=== PATIENT | male | born 1955 | race Caucasian/White ===

== ENCOUNTER → 2016-11-18 | Outpatient (CLI) | payer OTHER ==
[2016-11-18 11:23] LABS: ALANINE AMINOTRANSFERASE 30 U/L (21-72); ALBUMIN 3.4 g/dL (3.5-5.0); ALKALINE PHOSPHATASE 80 U/L (38-126); ANION GAP 11 (5-19); ASPARTATE AMINO TRANSFERASE 23 U/L (17-59); BILIRUBIN,TOTAL 0.6 mg/dL (0.2-1.3); BLOOD UREA NITROGEN 12 mg/dL (7-20); CALCIUM 9.3 mg/dL (8.4-10.2); CARBON DIOXIDE 31 mmol/L (22-30); CHLORIDE 97 mmol/L (98-107); CHOLESTEROL 83.26 mg/dL (0-200); Direct HDL 21 mg/dL (>40); GLUCOSE 90 mg/dL (75-110); POTASSIUM 4.4 mmol/L (3.6-5.0); SODIUM 139.3 mmol/L (137-145); TOTAL PROTEIN 7.3 g/dL (6.3-8.2); TRIGLYCERIDES 90 mg/dL (<150)
[2016-11-18 11:34] LABS: DIRECT LDL 31 mg/dL (<100)
== END ==
LOC: OD 08:51
PROVIDERS: ATTEND Internal Medicine
DX: E78.5 Hyperlipidemia, unspecified (principal); I10 Essential (primary) hypertension; I25.10 Atherosclerotic heart disease of native coronary artery without angina pectoris; I73.9 Peripheral vascular disease, unspecified; I42.9 Cardiomyopathy, unspecified; G47.30 Sleep apnea, unspecified; I25.2 Old myocardial infarction; Z98.61 Coronary angioplasty status; Z79.899 Other long term (current) drug therapy
CPT/HCPCS: 36415; 80053; 80061

== ENCOUNTER → 2016-12-30 | Outpatient (CLI) | payer OTHER ==
[2016-12-30 13:12] LABS: ABSOLUTE EOSINOPHILS # (AUTO) 0.1 10^3/uL (0.0-0.6); ABSOLUTE LYMPHOCYTES (AUTO) 0.6 10^3/uL (0.5-4.7); ABSOLUTE MONOCYTES (AUTO) 0.7 10^3/uL (0.1-1.4); ABSOLUTE NEUT (AUTO) 9.3 10^3/uL (1.7-8.2); BASOPHILS % (AUTO) 0.3 % (0-2); EOSINOPHILS % (AUTO) 0.9 % (0-6); HEMATOCRIT 30.1 % (37.9-51.0); HEMOGLOBIN 9.8 g/dL (13.5-17.0); HGB HCT DIFFERENCE -0.7; LYMPHOCYTES % (AUTO) 5.6 % (13-45); MEAN CORPUSCULAR HEMOGLOBIN 24.9 pg (27.0-33.4); MEAN CORPUSCULAR HGB CONC 32.6 g/dL (32.0-36.0); MEAN CORPUSCULAR VOLUME 76 fl (80-97); MONOCYTES % (AUTO) 6.2 % (3-13); RED BLOOD COUNT 3.95 10^6/uL (4.35-5.55); RED CELL DISTRIBUTION WIDTH 16.8 % (11.5-14.0); WHITE BLOOD COUNT 10.7 10^3/uL (4.0-10.5)
[2016-12-30 13:18] LABS: ANION GAP 12 (5-19); BLOOD UREA NITROGEN 14 mg/dL (7-20); CARBON DIOXIDE 30 mmol/L (22-30); CHLORIDE 98 mmol/L (98-107); CREATININE RESULT 0.52 mg/dL (0.52-1.25); GLUCOSE 93 mg/dL (75-110); POTASSIUM 4.4 mmol/L (3.6-5.0); SODIUM 139.5 mmol/L (137-145)
[2016-12-30 13:20] LABS: PROTHROMBIN TIME 15.2 SEC (11.4-15.4)
== END ==
LOC: OD 11:44
PROVIDERS: ATTEND Internal Medicine Critical Care Medicine
DX: R91.8 Other nonspecific abnormal finding of lung field (principal); Z87.891 Personal history of nicotine dependence; J98.11 Atelectasis; G47.33 Obstructive sleep apnea (adult) (pediatric)
CPT/HCPCS: 36415; 80048; 85025; 85610; 85730

== ENCOUNTER 2016-12-31 10:41 | Day surgery (SDC) | payer OTHER ==
[2016-12-31] MEDS ORDERED: LIDOCAINE 2% INJ (20 MG/ML) 20 ML MDV ONE (12:18)
[2016-12-31] MEDS ORDERED: LIDOCAINE 2% JELLY 30 ML TUBE ONE (12:18)
[2016-12-31] MEDS ORDERED: EPINEPHRINE INJ/PF 1 MG/1 ML AMPULE ONE (12:18)
[2016-12-31] MEDS ORDERED: NALOXONE HCL INJ/PF 0.4 MG/1 ML SDV ONE (12:18)
[2016-12-31] MEDS ORDERED: FLUMAZENIL INJ 0.5 MG/5 ML VIAL IV ONE (12:20)
[2016-12-31] MEDS ORDERED: EPINEPHRINE INJ 1 MG/10 ML DISP.SYRIN ONE (12:20)
[2016-12-31] MEDS: MIDAZOLAM 2 MG/2 ML INJ ONE ×10 (13:16→13:46)
[2016-12-31] MEDS: FENTANYL CITRATE INJ/PF 100 MCG/2 ML AMPUL ONE ×6 (13:19→13:44)
[2016-12-31 15:31] VITALS: BP 111/69
[2016-12-31 15:31] LABS: FLUID RBC DILUENT USED NONE USED; FLUID RBC DILUTION FACTOR 1; TOTAL RBC SQUARES COUNTED FLD 225
[2016-12-31 15:34] LABS: FLUID TYPE BRONCHIAL WASH
[2016-12-31 15:35] LABS: FLUID RBC SIDE 1 18; FLUID RBC SIDE 2 20
--- NOTE | 2016-12-31 18:48 | OPERATIVE REPORT E ---
Operative Report NAME: JAVED RODRIGUEZ : 1955 AGE: 61Y DATE OF SURGERY: 12/31/2016 ROOM: SURGEON: DANY WESLEY M.D. INDICATIONS: The patient is a 61-year-old male who came in with history of massive atelectasis left lung which just started a few weeks ago. It started with consolidation on the left upper lobe on chest CT scan about 4 weeks ago. Last week chest x-ray showing progression of the opacification involving the left lung. The patient denies any fever, chills, hemoptysis, or purulent sputum production. Denies any chest pain. Denies any acute worsening dyspnea. Patient has history of heavy smoking. Patient came in for flexible bronchoscopy with possible washing and possible endobronchial biopsy involving the left lung. Consent was obtained from the patient. Patient verbalized understanding of the indication, risks, and complications of the procedure. PROCEDURE: The patient was given 2% lidocaine nebulizer treatment 3 mL, 2% lidocaine 3 mL via nebulizer. Then, 2% lidocaine gel was applied on the posterior pharyngeal area. The patient tolerated the procedure. The patient was given Versed at increments of 0.5 mg for a total dose of 6 mg and fentanyl at increments of 25 mcg for a total dose of 115 mcg. Flexible bronchoscope was inserted through the mouthguard. A lot of secretions found on the oropharynx. Then, 1% lidocaine solution in 1 mL increments was applied on the vocal cords, trachea, chey, and segmental bronchi left more than right. Total dose of 18 mL of 2% lidocaine was given to patient. The right main stem bronchi and the right segment bronchi appeared patent and normal. The left main stem bronchus and the left segment bronchi, left upper lobe, left lower lobe appeared to be patent. No obstructing lesions noted. The mucosa appeared to be markedly erythematous and friable and bleeds easily and appeared corrugated. Bronchial washing was performed on the left lung. Abundant secretions were collected and will be sent for cytology and microbiology. Some bleeding was noted in the airway which was profuse and vigorous, even before the washing or biopsy can be performed. Patient was coughing profusely despite high doses of fentanyl and Versed. Patient may eventually require endobronchial biopsy and transbronchial lung biopsy probably in a tertiary care setting with cautery or cryotherapy capability, as needed if patient bleeds profusely. Patient seemed to tolerate the procedure with no adverse events. Will need to be endotracheally intubated if future lung biopsy is done and possible concomitant EBUS- guided biopsy if mediastinal LNs are pathologically enlarged. DICTATING PHYSICIAN: DANY WESLEY MD,NILA,MPH [id number] PHY#: [id number] ID: [id number] JOB#: [id number] ACCT: [id number] cc:DANY WESLEY M.D. > MTDD
[2017-01-01 10:08] LABS: FLUID APPEARANCE CLOUDY
== END 2016-12-31 15:30 | disposition home or self-care (01) ==
LOC: OMH.OR.ALL 10:41
PROVIDERS: ATTEND Internal Medicine Critical Care Medicine
PROC: 0B9L8ZX Drainage of Left Lung, Via Natural or Artificial Opening Endoscopic, Diagnostic (ICD-10-PCS; principal; 2016-12-31 13:00)
DX: J98.11 Atelectasis (principal); R91.8 Other nonspecific abnormal finding of lung field; G47.33 Obstructive sleep apnea (adult) (pediatric); I25.10 Atherosclerotic heart disease of native coronary artery without angina pectoris; Z79.899 Other long term (current) drug therapy; Z79.02 Long term (current) use of antithrombotics/antiplatelets; Z87.891 Personal history of nicotine dependence
CPT/HCPCS: 31624; 87070; 87205; 87206; 87116; 87101; 89050; 87015; 88104 ×2; 88305 ×2; J2250; J3490; J3010; J0171; J2310

== ENCOUNTER → 2017-01-02 | Outpatient (CLI) | payer OTHER ==
[2017-01-02 09:47] LABS: ABSOLUTE EOSINOPHILS # (AUTO) 0.1 10^3/uL (0.0-0.6); ABSOLUTE LYMPHOCYTES (AUTO) 0.6 10^3/uL (0.5-4.7); ABSOLUTE MONOCYTES (AUTO) 0.5 10^3/uL (0.1-1.4); ABSOLUTE NEUT (AUTO) 8.3 10^3/uL (1.7-8.2); BASOPHILS % (AUTO) 0.4 % (0-2); EOSINOPHILS % (AUTO) 0.9 % (0-6); HEMATOCRIT 31.4 % (37.9-51.0); HGB HCT DIFFERENCE -1.4; LYMPHOCYTES % (AUTO) 6.4 % (13-45); MEAN CORPUSCULAR HEMOGLOBIN 24.3 pg (27.0-33.4); MEAN CORPUSCULAR HGB CONC 31.9 g/dL (32.0-36.0); MEAN CORPUSCULAR VOLUME 76 fl (80-97); MONOCYTES % (AUTO) 5.7 % (3-13); RED BLOOD COUNT 4.13 10^6/uL (4.35-5.55); RED CELL DISTRIBUTION WIDTH 16.9 % (11.5-14.0); SEGMENTED NEUTROPHILS % (AUTO) 86.6 % (42-78); WHITE BLOOD COUNT 9.6 10^3/uL (4.0-10.5)
[2017-01-02 09:50] LABS: PROTHROMBIN TIME 15.2 SEC (11.4-15.4)
[2017-01-02 09:51] LABS: PARTIAL THROMBOPLASTIN TIME 45.6 SEC (23.5-35.8)
[2017-01-02 10:12] LABS: ANION GAP 11 (5-19); BLOOD UREA NITROGEN 10 mg/dL (7-20); CALCIUM 9.4 mg/dL (8.4-10.2); CARBON DIOXIDE 33 mmol/L (22-30); CHLORIDE 98 mmol/L (98-107); CREATININE RESULT 0.55 mg/dL (0.52-1.25); GLUCOSE 122 mg/dL (75-110); SODIUM 141.8 mmol/L (137-145)
== END ==
LOC: OD 08:49
PROVIDERS: ATTEND Internal Medicine Critical Care Medicine
DX: R91.8 Other nonspecific abnormal finding of lung field (principal); J98.11 Atelectasis; G47.33 Obstructive sleep apnea (adult) (pediatric); Z87.891 Personal history of nicotine dependence
CPT/HCPCS: 36415; 80048; 85025; 85610; 85730

== ENCOUNTER 2017-09-07 11:31 | Emergency (ER) | payer OTHER ==
--- NOTE | 2017-09-07 11:39 | ER Document Report ---
ED Resuscitation - General Mode of Arrival: Medic Information source: Emergency Med Personnel Cannot obtain history due to: Intubated, Unstable vital signs TRAVEL OUTSIDE OF THE [place] IN LAST 30 DAYS: No <ZAYDA TYLER - Last Filed: 09/07/17 14:36> <TONY SINCLAIR - Last Filed: 09/07/17 14:40> - General Stated Complaint: CARDIAC ARREST Time Seen by Provider: 09/07/17 11:38 Notes: Patient is a 62 year old male that presents to the emergency department today after collapsing in a hotel lobby in [place] according to EMS. EMS reports bystander CPR was started immediately. EMS reports [facility] Department arrived on scene at approximately 1045, a tawanda airway was placed and CPR was continued. EMS reports aystole on arrival. CPR was continued and a total of 3 rounds of epinephrine were administered before ROSC began at around 1100. ROSC was maintained for approximately 5 minutes when the patient began to become bradycardic, atropene was administered, patient went back into aystole. CPR again was administered, after another 1 round of epinephrine ROSC was obatained again. Patient arrived here at 1133 with spontaneous circulation, being bagged with good oxygen saturation. (ZAYDA TYLER) Discussion with the family reveals the patient had had some collapse of his left lung previously. He reportedly appeared fine just prior to his collapse today. We have minimal old records here with no chest x-ray or EKG for comparison. ( TONY SINCLAIR) - Related Data Allergies/Adverse Reactions: No Known Allergies Allergy (Unverified 10/06/15 16:11) Past Medical History - General Information source: Emergency Med Personnel Cannot obtain history due to: Intubated, Unstable vital signs - Social History Smoking Status: Smoker,Current Status Unk Frequency of alcohol use: None Drug Abuse: None Family History: Reviewed & Not Pertinent - Past Medical History Cardiac Medical History: Reports: Hx Heart Attack - Cardiac Stent x 1, [place] 2000, Hx Hypertension - On medication Malignancy Medical History: Reports Hx Lung Cancer Surgical Hx: Negative - Immunizations Hx Diphtheria, Pertussis, Tetanus Vaccination: Yes - 2015 <ZAYDA TYLER - Last Filed: 09/07/17 14:36> Review of Systems - Review of Systems -: Yes ROS unobtainable due to patient's medical condition <ZAYDA TYLER - Last Filed: 09/07/17 14:36> Physical Exam - General In distress: Severe - HEENT Head: Normocephalic, Atraumatic - Respiratory Respiratory status: Other - Tawanda airway in place, being bagged with good saturation - Cardiovascular Rhythm: Tachycardia - Abdominal Inspection: Normal Distension: No distension - Extremities General upper extremity: No: Edema General lower extremity: No: Edema - Psychological Associated symptoms: Other - unable to assess - Skin Skin Temperature: Warm Skin Moisture: Dry Skin Color: Mottled - anterior chest and abdomen <ZAYDA TYLER - Last Filed: 09/07/17 14:36> <TONY SINCLAIR - Last Filed: 09/07/17 14:40> - Vital signs Vitals: Resp 17 09/07/17 11:33 - Neurological Notes: Patient has tawanda airway in place, unresponsive, pupils are small and not reactive on arrival, after some time here the patient has pupils became pinpoint (ZAYDA TYLER) Course - Laboratory Result Diagrams: 09/07/17 11:35 09/07/17 11:35 <ZAYDA TYLER - Last Filed: 09/07/17 14:36> - Laboratory Result Diagrams: 09/07/17 11:35 09/07/17 11:35 - Diagnostic Test Radiology reviewed: Image reviewed, Reports reviewed - Chest x-ray shows the left lung nearly lalo out. The reading is asymmetric pulmonary edema versus pneumonia with underlying lung mass. - EKG Interpretation by Tn EKG shows normal: Sinus rhythm, [place], QRS Complexes. abnormal: Intervals - Borderline QT interval, ST-T Waves - Abnormal T's in the lateral leads suspicious for ischemia Rate: Tachycardia - 128 Rhythm: PVC's Voltage: Decreased voltage When compared to previous EKG there are: Previous EKG unavailable - Consults Dr. Jeter Consulted provider: other - Requested transfer the patient as he will need cooling for out of hospital cardiac arrest. Dr. Donaldson Consulted provider: other - Media Supervisor at [facility] except the patient in transfer, but feels the patient is not a candidate for cooling due to the underlying malignancy. <TONY SINCLAIR - Last Filed: 09/07/17 14:40> - Re-evaluation Re-evalutation: 09/07/17 12:16 The nurse k 9 police officer came to intubate the patient. A bougie was placed through the Tawanda airway, then the Tawanda airway was removed and a #8 endotracheal tube was easily passed. Good airflow and oxygen saturations. O2 sat only dropped to 94% during the procedure. 09/07/17 13:12 Postintubation the patient's blood pressure dropped into the mid 60s systolic and persisted. Lab work showed a pH of 6.92 with a PCO2 of 6802 999 100% by the ventilator. Patient's white count is 6600 with 54 segs no bands 40 minutes 5 monocytes. This suggests that the chest x-ray picture is not pneumonia. The patient was given 25 mEq sodium bicarb and Levophed drip was started. Blood pressure only came up to about 72 systolic, he was given another 25 liquids of sodium bicarb and started on a bicarb drip. He was given 20 mg of ketamine IV twice for agitation with minimal improvement. He was accepted by the underwater hunter trapper at [facility] for transfer and management. 09/07/17 13:53 I was informed that ground transport will not be available for several hours. Air transport is available so we will go with that option to move this patient to a level of higher care. (TONY SINCLAIR) - Vital Signs Vital signs: Temp Pulse Resp BP Pulse Ox 21 H 108/81 91 L 09/07/17 14:26 09/07/17 14:26 09/07/17 14:26 - Laboratory Laboratory results interpreted by me: 09/07/17 09/07/17 09/07/17 11:35 11:35 11:35 RBC 4.14 L Hgb 12.7 L MCV 98 H MCHC 31.3 L RDW 14.1 H Carbonic Acid ABG pH ABG pCO2 ABG pO2 ABG HCO3 ABG Total CO2 ABG O2 Saturation Sodium 145.7 H Carbon Dioxide 18 L Anion Gap 23 H Glucose 277 H POC Glucose Lactic Acid 13.1 H AST 92 H ALT 84 H Creatine Kinase Total Protein 6.0 L Albumin 3.2 L Urine Blood 09/07/17 09/07/17 09/07/17 11:35 11:37 11:44 RBC Hgb MCV MCHC RDW Carbonic Acid ABG pH ABG pCO2 ABG pO2 ABG HCO3 ABG Total CO2 ABG O2 Saturation Sodium Carbon Dioxide Anion Gap Glucose POC Glucose 279 H Lactic Acid AST ALT Creatine Kinase 173 H Total Protein Albumin Urine Blood SMALL H 09/07/17 12:09 RBC Hgb MCV MCHC RDW Carbonic Acid 2.04 H ABG pH 6.92 L* ABG pCO2 67.9 H ABG pO2 199.0 H ABG HCO3 13.7 L ABG Total CO2 15.8 L ABG O2 Saturation 98.5 H Sodium Carbon Dioxide Anion Gap Glucose POC Glucose Lactic Acid AST ALT Creatine Kinase Total Protein Albumin Urine Blood Critical Care Note - Critical Care Note Total time excluding time spent on procedures (mins): 85 <TONY SINCLAIR - Last Filed: 09/07/17 14:40> Discharge <ZAYDA TYLER - Last Filed: 09/07/17 14:36> <TONY SINCLAIR - Last Filed: 09/07/17 14:40> - Discharge Clinical Impression: Cardiac arrest, Metabolic acidosis, Cardiopulmonary arrest with successful resuscitation Lung cancer Qualifiers: Laterality: left Lung location: unspecified part of lung Qualified Code(s): C34.92 - Malignant neoplasm of unspecified part of left bronchus or lung Hypotension Qualifiers: Hypotension type: unspecified hypotension type Qualified Code(s): I95.9 - Hypotension, unspecified Condition: Critical Disposition: [facility] Scribe Attestation: 09/07/17 14:39 I personally performed the services described in the documentation, reviewed and edited the documentation which was dictated to the scribe in my presence, and it accurately records my words and actions. (TONY SINCLAIR) Scribe Documentation - Scribe Written by Olmane:: Ana María Ceballos, 09/07/2017 1303 acting as scribe for :: Valeriano <ZAYDA TYLER - Last Filed: 09/07/17 14:36>
[2017-09-07] MEDS ORDERED: NORMAL SALINE 1000 ML 1,000 ML IV ONE (11:40)
[2017-09-07 11:46] LABS: ABSOLUTE EOSINOPHILS # (AUTO) 0.1 10^3/uL (0.0-0.6); ABSOLUTE LYMPHOCYTES (AUTO) 2.6 10^3/uL (0.5-4.7); ABSOLUTE MONOCYTES (AUTO) 0.3 10^3/uL (0.1-1.4); ABSOLUTE NEUT (AUTO) 3.5 10^3/uL (1.7-8.2); BASOPHILS % (AUTO) 0.6 % (0-2); EOSINOPHILS % (AUTO) 1.2 % (0-6); HEMATOCRIT 40.6 % (37.9-51.0); HEMOGLOBIN 12.7 g/dL (13.5-17.0); MEAN CORPUSCULAR HEMOGLOBIN 30.6 pg (27.0-33.4); MEAN CORPUSCULAR HGB CONC 31.3 g/dL (32.0-36.0); MEAN CORPUSCULAR VOLUME 98 fl (80-97); MONOCYTES % (AUTO) 4.7 % (3-13); PLATELET COUNT 156 10^3/uL (150-450); RED BLOOD COUNT 4.14 10^6/uL (4.35-5.55); RED CELL DISTRIBUTION WIDTH 14.1 % (11.5-14.0); SEGMENTED NEUTROPHILS % (AUTO) 53.5 % (42-78); TOTAL CELLS COUNTED % (AUTO) 100 %; WHITE BLOOD COUNT 6.6 10^3/uL (4.0-10.5)
[2017-09-07] MEDS ORDERED: METOPROLOL TARTRATE PF/INJ 5 MG/5 ML SDV IV ONE ×2 (11:55)
[2017-09-07 11:58] LABS: APPEARANCE,URINE SLIGHTLY-CLOUDY; BILIRUBIN,URINE NEGATIVE (NEGATIVE); COLOR,URINE YELLOW; GLUCOSE, URINE NEGATIVE (NEGATIVE); KETONES,URINE NEGATIVE (NEGATIVE); LEUKOCYTE ESTERASE,URINE NEGATIVE (NEGATIVE); NITRITE,URINE NEGATIVE (NEGATIVE); PROTEIN,URINE NEGATIVE (NEGATIVE); UROBILINOGEN,URINE NEGATIVE mg/dL (<2.0)
[2017-09-07 12:08] LABS: ALANINE AMINOTRANSFERASE 84 U/L (21-72); ALBUMIN 3.2 g/dL (3.5-5.0); ALKALINE PHOSPHATASE 73 U/L (38-126); ASPARTATE AMINO TRANSFERASE 92 U/L (17-59); BILIRUBIN,DIRECT 0.2 mg/dL (0.0-0.4); BILIRUBIN,TOTAL 0.4 mg/dL (0.2-1.3); BLOOD UREA NITROGEN 13 mg/dL (7-20); CALCIUM 9.4 mg/dL (8.4-10.2); CHLORIDE 105 mmol/L (98-107); GLUCOSE 277 mg/dL (75-110)
--- NOTE | 2017-09-07 12:13 | RADIOLOGY REPORT (SQ) ---
EXAM DESCRIPTION: CHEST SINGLE VIEW COMPLETED DATE/TIME: 09/07/2017 12:00 pm REASON FOR STUDY: post arrest , lung Ca COMPARISON: None. EXAM PARAMETERS: NUMBER OF VIEWS: One view. TECHNIQUE: Single frontal radiographic view of the chest acquired. RADIATION DOSE: NA LIMITATIONS: Overlying support apparatus. FINDINGS: LUNGS AND PLEURA: Diffuse airspace disease with more confluent consolidation and volume lo ss in the left lung. Small left pleural effusion. MEDIASTINUM AND HILAR STRUCTURES: Abnormal density left hilum. HEART AND VASCULAR STRUCTURES: Cardiomegaly. BONES: No acute findings. HARDWARE: None in the chest. OTHER: No other significant finding. IMPRESSION: Asymmetric edema or pneumonia. Suspect underlying mass left lung. TECHNICAL DOCUMENTATION: JOB ID: [id number] [employer]- All Rights Reserved
[2017-09-07 12:15] LABS: CARBON DIOXIDE 18 mmol/L (22-30); SODIUM 145.7 mmol/L (137-145)
[2017-09-07 12:18] LABS: ARTERIAL BLOOD BASE EXCESS -19.5 mmol/L; ARTERIAL BLOOD H2CO3 2.04 mmol/L (1.05-1.35); ARTERIAL BLOOD HCO3 13.7 mmol/L (20-26); ARTERIAL BLOOD O2 SATURATION 98.5 % (94-98); ARTERIAL BLOOD PCO2 67.9 mmHg (35-45); ARTERIAL BLOOD TOTAL CO2 15.8 mmol/L (23-27)
[2017-09-07 12:19] LABS: ARTERIAL BLOOD FIO2 100%
[2017-09-07 12:20] LABS: ANION GAP 23 (5-19)
[2017-09-07 12:21] LABS: ARTERIAL BLOOD PH 6.92 (7.35-7.45)
[2017-09-07] MEDS ORDERED: PROPOFOL INJ 200 MG/20 ML VIAL IV ONE (12:21)
[2017-09-07] MEDS ORDERED: NOREPINEPHRINE BITARTRATE INJ/PF 4 MG/4 ML SDV IV ONE (12:45)
[2017-09-07] MEDS ORDERED: KETAMINE HCL INJ 500 MG/10 ML VIAL IV ONE ×4 (12:46→14:02)
[2017-09-07] MEDS ORDERED: DEXTROSE 5%-WATER 250 ML with NOREPINEPHRINE BITARTRATE 4 MG IV PRN ×2 (12:46)
[2017-09-07] MEDS ORDERED: KETAMINE HCL INJ 500 MG/10 ML VIAL ONE (12:48)
[2017-09-07] MEDS ORDERED: SODIUM BICARBONATE 8.4% INJ 50 MEQ/50 ML DISP.SYRIN IV ONE ×3 (12:50→13:07)
--- NOTE | 2017-09-07 13:01 | RADIOLOGY REPORT (SQ) ---
EXAM DESCRIPTION: CHEST SINGLE VIEW COMPLETED DATE/TIME: 09/07/2017 12:44 pm REASON FOR STUDY: Postintubation COMPARISON: Earlier the same day. NUMBER OF VIEWS: One view. TECHNIQUE: Single frontal radiographic image of the chest acquired. LIMITATIONS: None. FINDINGS: LUNGS AND PLEURA: No pneumothorax. No significant change. MEDIASTINUM AND HEART: Stable heart size and mediastinal structures. SUPPORT DEVICES: Endotracheal tube tip between thoracic inlet and chey. BONY STRUCTURES: No acute findings. HARDWARE: None. OTHER: No other significant finding. IMPRESSION: Satisfactory position of endotracheal tube. No pneumothorax.
[2017-09-07] MEDS ORDERED: DEXTROSE 5%-WATER 1000 ML 1,000 ML with SODIUM BICARBONATE 150 MEQ IV PRN ×2 (13:08)
[2017-09-07 13:13] LABS: CREATINE KINASE MB 1.31 ng/mL (<4.55)
[2017-09-07 13:16] LABS: TROPONIN I 0.056 ng/mL
[2017-09-07 13:18] LABS: CREATINE KINASE 173 U/L (55-170)
[2017-09-07] MEDS ORDERED: FENTANYL CITRATE INJ/PF 100 MCG/2 ML AMPUL IV ONE ×3 (13:21→14:02)
[2017-09-07 15:23] VITALS: BP 92/68
--- NOTE | 2017-09-07 15:56 | EKG REPORT ---
SEVERITY:- ABNORMAL ECG - SINUS TACHYCARDIA LOW VOLTAGE IN FRONTAL LEADS ABNORMAL T, CONSIDER ISCHEMIA, ANT-LAT LEADS BORDERLINE PROLONGED QT INTERVAL : Confirmed by: Tyree Prater 07-Sep-2017 15:56:16
--- NOTE | 2017-09-07 22:20 | EKG REPORT ---
SEVERITY:- ABNORMAL ECG - SINUS OR ECTOPIC ATRIAL TACHYCARDIA CAN NOT R/O A. FIB VENTRICULAR PREMATURE COMPLEX LOW VOLTAGE IN FRONTAL LEADS BORDERLINE PROLONGED QT INTERVAL : Confirmed by: Tyree Prater 07-Sep-2017 22:20:07
== END 2017-09-07 15:08 | disposition short-term general hospital (02) ==
LOC: ER 11:31
PROC: 0BH17EZ Insertion of Endotracheal Airway into Trachea, Via Natural or Artificial Opening (ICD-10-PCS; principal; 2017-09-07)
DX: I46.9 Cardiac arrest, cause unspecified (principal); E87.2 Acidosis; C34.92 Malignant neoplasm of unspecified part of left bronchus or lung; I95.9 Hypotension, unspecified; I25.2 Old myocardial infarction; F17.200 Nicotine dependence, unspecified, uncomplicated
CPT/HCPCS: 31500; 93005; 99291; 99292; 96375; 96365; 96366; 36415; 82553; 82962; 82803; 82550; 85025; 80053; 81001; 84484; 83605; 83880; 71010; 93010; J3010; J3490 ×4; J7060 ×2; J7030; J2704